=== PATIENT | female | born 1945 | race Hispanic/Latino ===

== ENCOUNTER 2023-05-08 07:32 | Observation (INO) | payer MEDICARE ==
[~2023-05-08] VITALS: Ht 160 cm; Wt 84.8 kg
[2023-05-08] MEDS ORDERED: ROSUVASTATIN CA40 MG PO (08:07)
[2023-05-08] MEDS ORDERED: LISINOPRIL5 MG PO (08:07)
[2023-05-08] MEDS ORDERED: ROPINIROLE HCL0.5 MG PO (08:07)
[2023-05-08] MEDS ORDERED: MELOXICAM15 MG PO (08:07)
[2023-05-08 08:13] LABS: BASOPHILS # (AUTO) 0.1 (0.0-0.1); BASOPHILS % 0.9 % (0.0-1.0); EOSINOPHILS # (AUTO) 0.1 (0.0-0.4); EOSINOPHILS % 1.4 % (0.0-6.0); HEMATOCRIT 38.2 % (34.2-44.1); LYMPHOCYTES # (AUTO) 1.8 (1.0-3.2); LYMPHOCYTES % 23.4 % (18.0-39.1); MEAN CORPUSCULAR HEMOGLOBIN 29.7 pg (28-32); MEAN CORPUSCULAR HGB CONC 31.4 g/dL (31-35); MEAN CORPUSCULAR VOLUME 94.6 fL (81-99); MONOCYTES # (AUTO) 0.7 (0.2-0.8); PLATELET COUNT 265 x10e3/uL (140-360); RED BLOOD COUNT 4.04 x10e6/uL (3.6-5.1); RED CELL DISTRIBUTION WIDTH 13.6 % (11.7-14.4); WHITE BLOOD COUNT 7.68 x10e3/uL (4.8-10.8)
[2023-05-08] MEDS ORDERED: ACETAMINOPHEN 325 MG TAB PO ONE (08:15)
[2023-05-08 08:30] LABS: ALBUMIN 3.7 g/dL (3.5-5.0); ALBUMIN/GLOBULIN RATIO 1.1 (0.8-2.0); ANION GAP 13.7 mmol/L (8-16); BILIRUBIN,TOTAL 0.5 mg/dL (0.2-1.2); CALCIUM 9.1 mg/dL (8.4-10.2); CREATININE, SERUM 1.02 mg/dL (0.57-1.11); POTASSIUM 3.7 mmol/L (3.5-5.1); TOTAL PROTEIN 7.1 g/dL (6.5-8.1)
[2023-05-08 08:32] LABS: BACTERIA,URINE MODERATE /HPF; BILIRUBIN,URINE NEGATIVE (NEGATIVE); CLARITY,URINE CLEAR (CLEAR); COLOR,URINE YELLOW (YELLOW); EPITHELIAL CELLS,URINE FEW /LPF; GLUCOSE, URINE NEGATIVE (NEGATIVE); KETONES,URINE NEGATIVE (NEGATIVE); LEUKOCYTE ESTERASE ,URINE NEGATIVE (NEGATIVE); NITRITE,URINE NEGATIVE (NEGATIVE); PH,URINE 5.5 (5 - 7); PROTEIN,URINE DIPSTICK NEGATIVE (NEGATIVE); URINE UROBILINOGEN 0.2 mg/dL (0.2 - 1); WBC,URINE (MAN) 0-5 /HPF (0-5)
[2023-05-08] MEDS ORDERED: IBUPROFEN 600 MG TAB PO STA (08:58)
[2023-05-08] MEDS ORDERED: DIPHENHYDRAMINE HCL 25 MG CAP PO ONE (09:30)
[2023-05-08] MEDS ORDERED: ONDANSETRON HCL INJ 2MG/ML 2ML 2 MG/ML VIAL IV PRN (10:00)
[2023-05-08] MEDS ORDERED: SODIUM CHLORIDE FLUSH 10 ML SYR INJ PRN (10:00)
[2023-05-08 10:50] VITALS: BP 157/88; PULSE 82; RESP 18; TEMP 98.1; O2SAT 100
[2023-05-08] MEDS ORDERED: RESTASIS1 EACH OU (11:21)
[2023-05-08 12:24] VITALS: BP 157/88; PULSE 85; RESP 18; TEMP 98.1; O2SAT 100
[2023-05-08] MEDS: TRAMADOL HCL 50 MG TAB PO PRN (12:31)
[2023-05-08] MEDS: CYCLOBENZAPRINE HCL 10 MG TAB PO PRN ×2 (14:07→21:16)
[2023-05-08 16:08] VITALS: BP 125/70; PULSE 78; RESP 18; TEMP 98.2; O2SAT 98
[2023-05-08 20:04] VITALS: BP 122/67; PULSE 83; RESP 18; TEMP 98.4; O2SAT 98
[2023-05-08 20:16] VITALS: BP 125/70; PULSE 78; RESP 18; TEMP 98.2; O2SAT 98
[2023-05-08] MEDS ORDERED: ROPINIROLE HCL 0.25 MG TAB PO SCH (21:00)
[2023-05-08] MEDS ORDERED: NON-FORMULARY MEDICATION (Cyclosporine (Restasis) 1 DROP) OU PRN (21:00)
[2023-05-08 21:23] LABS: CHOL/HDL RATIO 2.7 (3.0-3.6)
[2023-05-08 23:50] VITALS: BP 100/66; PULSE 63; RESP 16; TEMP 98.1; O2SAT 95
[2023-05-09] MEDS: TRAMADOL HCL 50 MG TAB PO PRN (04:04)
[2023-05-09 04:37] VITALS: BP 145/86; PULSE 95; RESP 21; TEMP 97.7; O2SAT 98
[2023-05-09] MEDS ORDERED: CRESTOR 10MG PO SCH (09:00)
== END 2023-05-09 05:30 | disposition left against medical advice (07) ==
LOC: ER 07:43 → ERHOLD 09:50 → MED/SURG2 10:52
PROVIDERS: ADMIT Internal Medicine; ATTEND Internal Medicine
DX: R44.1 Visual hallucinations (principal); R94.02 Abnormal brain scan; N17.9 Acute kidney failure, unspecified; G93.9 Disorder of brain, unspecified; N39.0 Urinary tract infection, site not specified; Z53.29 Procedure and treatment not carried out because of patient's decision for other reasons; I10 Essential (primary) hypertension; E78.5 Hyperlipidemia, unspecified; G20.A1 Parkinson's disease without dyskinesia, without mention of fluctuations; E66.9 Obesity, unspecified; Z68.33 Body mass index [BMI] 33.0-33.9, adult; M19.91 Primary osteoarthritis, unspecified site; Z11.52 Encounter for screening for COVID-19; Z79.899 Other long term (current) drug therapy
CPT/HCPCS: 36415; 70450; 80053; 80061; 81001; 83036; 84484; 85025; 87400; 93005; 99284; G0378 ×2; J0696; U0002